=== PATIENT | female | born 1995 | race Caucasian/White ===

== ENCOUNTER 2017-01-09 20:07 | Emergency (ER) | payer OTHER ==
[2017-01-09 21:43] LABS: APPEARANCE,URINE CLOUDY; BILIRUBIN,URINE NEGATIVE (NEGATIVE); GLUCOSE, URINE NEGATIVE (NEGATIVE); KETONES,URINE NEGATIVE (NEGATIVE); LEUKOCYTE ESTERASE,URINE LARGE (NEGATIVE); NITRITE,URINE POSITIVE (NEGATIVE); PROTEIN,URINE NEGATIVE (NEGATIVE); URINE SPECIFIC GRAVITY 1.014; UROBILINOGEN,URINE NEGATIVE mg/dL (<2.0)
[2017-01-10] MEDS ORDERED: CEFTRIAXONE INJ 1000 MG VIAL IM ONE
[2017-01-10] MEDS ORDERED: LIDOCAINE 1% INJ-PF (10 MG/ML) 30 ML SDV INJ ONE
--- NOTE | 2017-01-10 00:16 | ER Document Report ---
HPI - HPI Pain Level: 4 Notes: Patient is a 21-year-old female who presents the ED complaining of burning with urination, frequency, urgency, cloudy urine times several days. Patient states that she usually does homeopathic remedies which helps resolve her symptoms from previous UTIs, but this time symptoms have been persistent. Patient denies any abdominal or flank pain. She still eating and drinking without any difficulties. She denies any vaginal odor/discharge/bleeding. Denies any drug allergies. No other significant past medical history aside from Tourette's. Denies any headache, fever, URI, sore throat, chest pain, palpitations, syncope , cough, shortness of breath, wheeze, dyspnea, abdominal pain, nausea/vomiting/ diarrhea, or rash. - ROS Notes: REVIEW OF SYSTEMS: CONSTITUTIONAL : Denies fever, chills, or sweats. Denies recent illness. EENT: Denies eye, ear, throat, or mouth pain or symptoms. Denies nasal or sinus congestion or discharge. Denies throat, tongue, or mouth swelling or difficulty swallowing. CARDIOVASCULAR: Denies chest pain. Denies palpitations or racing or irregular heart beat. Denies ankle edema. RESPIRATORY: Denies cough, cold, or chest congestion. Denies shortness of breath, difficulty breathing, or wheezing. GASTROINTESTINAL: Denies abdominal pain or distention. Denies nausea, vomiting , or diarrhea. Denies blood in vomitus, stools, or per rectum. Denies black, tarry stools. Denies constipation. GENITOURINARY: See HPI MUSCULOSKELETAL: Denies back or neck pain or stiffness. Denies joint pain or swelling. SKIN: Denies rash, lesions or sores. NEUROLOGICAL: Denies confusion or altered mental status. Denies passing out or loss of consciousness. Denies dizziness or lightheadedness. Denies headache. Denies weakness or paralysis or loss of use of either side. Denies problems with gait or speech. Denies sensory loss, numbness, or tingling. ALL OTHER SYSTEMS REVIEWED AND NEGATIVE. Dictation was performed using [employer] recognition software - DERM Skin Color: Normal Past Medical History - Social History Smoking Status: Never Smoker Frequency of alcohol use: None Drug Abuse: None Family History: Reviewed & Not Pertinent Patient has suicidal ideation: No Patient has homicidal ideation: No Renal/ Medical History: Denies: Hx Peritoneal Dialysis Surgical Hx: Negative - Immunizations Hx Diphtheria, Pertussis, Tetanus Vaccination: Yes Vertical Provider Document - CONSTITUTIONAL Agree With Documented VS: Yes Notes: PHYSICAL EXAMINATION: GENERAL: Well-appearing, well-nourished and in no acute distress. LUNGS: Breath sounds clear to auscultation bilaterally and equal. No wheezes rales or rhonchi. HEART: Regular rate and rhythm without murmurs, rubs, gallops. ABDOMEN: Soft, nontender, nondistended abdomen. No guarding, no rebound. No masses appreciated. Normal bowel sounds present. No CVA tenderness bilaterally. : deferred Extremities: No cyanosis, clubbing, or edema b/l. Peripheral pulses 2+. Capillary refill less than 3 seconds. NEUROLOGICAL: Normal speech, normal gait. Normal sensory, motor exams PSYCH: Normal mood, normal affect. SKIN: Warm, Dry, normal turgor, no rashes or lesions noted. - INFECTION CONTROL TRAVEL OUTSIDE OF THE [place] IN LAST 30 DAYS: No - RESPIRATORY O2 Sat by Pulse Oximetry: 100 Course - Re-evaluation Re-evalutation: 01/10/17 00:15 Patient is an afebrile, well-hydrated, 21-year-old female who presents to the ED with UTI, possible indication for early Aravind. Vitals are stable. PE otherwise unremarkable. See urinalysis results. Urine culture is pending. Rocephin 1 g given IM today. I will send her home with a prescription for Cipro to take twice daily for 1 week. Conservative measures for symptoms otherwise. Recheck with your PCM in 2-3 days. Consider consult with urologist for ongoing/worsening symptoms. Return to the ED with any worsening/concerning symptoms otherwise as reviewed discharge. Patient is in agreement. Low suspicion/risk for any emergent systemic condition or other acute abdomen/ pelvic at this time. - Vital Signs Vital signs: Temp Pulse Resp BP Pulse Ox 97.5 F 78 18 124/74 100 01/09/17 21:05 01/09/17 21:05 01/09/17 21:05 01/09/17 21:05 01/09/17 21:05 - Laboratory Laboratory results interpreted by me: 01/09/17 21:13 Urine Blood SMALL H Urine Nitrite POSITIVE H Ur Leukocyte Esterase LARGE H Discharge - Discharge Clinical Impression: UTI (urinary tract infection) Qualifiers: Urinary tract infection type: site unspecified Hematuria presence: without hematuria Qualified Code(s): N39.0 - Urinary tract infection, site not specified Condition: Stable Disposition: HOME, SELF-CARE Instructions: Urinary Tract Infection ([facility]), Ciprofloxacin ([facility]) Additional Instructions: Push fluids (i.e. water, cranberry juice) Proper hygenic technique Keep the skin clean Tylenol/ibuprofen as needed May use over the counter AZO for burning with urination Take medications as directed F/u with your PCM in 2-3 days for a recheck Consider consult with a Urologist for ongoing/worsening symptoms. Return to the ED with any development of fever, worsening pain, blood in the urine, flank pain, abdominal pain, n/v, CP, shortness of breath, or trouble breathing. Prescriptions: Ciprofloxacin HCl [Cipro 500 mg Tablet] 500 mg PO BID #14 tablet Referrals: [facility] [Provider Group] - Follow up as needed
[2017-01-10 00:46] VITALS: BP 111/69
== END 2017-01-10 00:36 | disposition home or self-care (01) ==
LOC: EDBD → ER 20:07
DX: N39.0 Urinary tract infection, site not specified (principal); R30.9 Painful micturition, unspecified; R35.0 Frequency of micturition; R39.15 Urgency of urination; F95.2 Tourette's disorder
CPT/HCPCS: 99283; 96372; 36415; 87086; 87088; 81001; 87186; J3490; J0696

== ENCOUNTER 2018-12-27 16:11 | Emergency (ER) | payer OTHER ==
--- NOTE | 2018-12-27 16:37 | ER Document Report ---
ED Medical Screen (RME) - General Chief Complaint: Dizziness Stated Complaint: DIZZINESS Time Seen by Provider: 12/27/18 16:27 TRAVEL OUTSIDE OF THE [place] IN LAST 30 DAYS: No - HPI Notes: 12/27/18 16:33 Patient is a 23-year-old female no significant past medical history who presents with an extensive list of complaints with well over 10 concerns. The past couple weeks patient has been having intermittent dizziness with some ringing in the ears bilaterally. Patient also felt anxious. She has had some palpitations. Patient does report losing some hair with tingling to her hands and feet bilaterally as well as been feeling cold and clammy. Most of these issues have been intermittent and chronic otherwise. She has other complaints that she has a list of she can mention to the main side provider, but we will start with basics at this time. Denies SOLOMON, fever, neck pain, URI, CP, SOB, Abd pain, v/d, dysuria, back pain, or rash. I have treated and performed a rapid initial assessment of this patient. A comprehensive ED assessment and evaluation of the patient, analysis of test results and completion of medical decision making process will be conducted by additional ED providers. o2 saturation 100%, not 91% on RA. PHYSICAL EXAMINATION: GENERAL: Well-appearing, well-nourished and in no acute distress. A&Ox4. Answers questions appropriately. LUNGS: Breath sounds clear to auscultation bilaterally and equal. No wheezes rales or rhonchi. HEART: Regular rate and rhythm without murmurs, rubs, gallops. Extremities: No cyanosis, clubbing, or edema b/l. NEUROLOGICAL: Normal speech, normal gait. Cranial nerves grossly intact. PSYCH: pt appears very anxious - Related Data Allergies/Adverse Reactions: No Known Allergies Allergy (Verified 12/27/18 16:12) Past Medical History Renal/ Medical History: Denies: Hx Peritoneal Dialysis - Immunizations Hx Diphtheria, Pertussis, Tetanus Vaccination: Yes Physical Exam - Vital signs Vitals: Temp Pulse Resp BP Pulse Ox 98.3 F 93 15 100/75 91 L 12/27/18 16:19 12/27/18 16:19 12/27/18 16:19 12/27/18 16:19 12/27/18 16:19 Course - Vital Signs Vital signs: Temp Pulse Resp BP Pulse Ox 98.3 F 93 15 100/75 91 L 12/27/18 16:19 12/27/18 16:19 12/27/18 16:19 12/27/18 16:19 12/27/18 16:19
[2018-12-27] MEDS ORDERED: MECLIZINE HCL 25 MG TABLET PO ONE (16:38)
[2018-12-27 17:09] LABS: ABSOLUTE EOSINOPHILS # (AUTO) 0.1 10^3/uL (0.0-0.6); ABSOLUTE LYMPHOCYTES (AUTO) 1.9 10^3/uL (0.5-4.7); ABSOLUTE MONOCYTES (AUTO) 0.6 10^3/uL (0.1-1.4); ABSOLUTE NEUT (AUTO) 2.8 10^3/uL (1.7-8.2); BASOPHILS % (AUTO) 0.6 % (0-2); EOSINOPHILS % (AUTO) 2.5 % (0-6); HEMATOCRIT 44.3 % (36.0-47.0); LYMPHOCYTES % (AUTO) 35.2 % (13-45); MEAN CORPUSCULAR HEMOGLOBIN 29.7 pg (27.0-33.4); MEAN CORPUSCULAR HGB CONC 33.8 g/dL (32.0-36.0); MEAN CORPUSCULAR VOLUME 88 fl (80-97); MONOCYTES % (AUTO) 10.7 % (3-13); PLATELET COUNT 253 10^3/uL (150-450); RED BLOOD COUNT 5.05 10^6/uL (3.72-5.28); RED CELL DISTRIBUTION WIDTH 13.1 % (11.5-14.0); TOTAL CELLS COUNTED % (AUTO) 100 %; WHITE BLOOD COUNT 5.5 10^3/uL (4.0-10.5)
[2018-12-27 17:15] LABS: APPEARANCE,URINE HAZY; BILIRUBIN,URINE MODERATE (NEGATIVE); GLUCOSE, URINE NEGATIVE (NEGATIVE); KETONES,URINE 100 mg/dL (NEGATIVE); LEUKOCYTE ESTERASE,URINE TRACE (NEGATIVE); NITRITE,URINE NEGATIVE (NEGATIVE); PROTEIN,URINE 30 mg/dL (NEGATIVE)
[2018-12-27 17:18] LABS: COLOR,URINE YELLOW; URINE SPECIFIC GRAVITY 1.028
[2018-12-27 17:28] LABS: ALBUMIN 5.2 g/dL (3.5-5.0); ALKALINE PHOSPHATASE 58 U/L (38-126); ANION GAP 13 (5-19); ASPARTATE AMINO TRANSFERASE 21 U/L (14-36); BILIRUBIN,DIRECT 0.1 mg/dL (0.0-0.4); BLOOD UREA NITROGEN 16 mg/dL (7-20); CALCIUM 10.2 mg/dL (8.4-10.2); CARBON DIOXIDE 28 mmol/L (22-30); CHLORIDE 100 mmol/L (98-107); GLUCOSE 83 mg/dL (75-110); POTASSIUM 4.2 mmol/L (3.6-5.0); TOTAL PROTEIN 8.6 g/dL (6.3-8.2)
[2018-12-27 17:45] LABS: FREE T3 3.82 pg/mL (2.77-5.27); FREE T4 (FREE THYROXINE) 1.31 ng/dL (0.78-2.19)
[2018-12-27] MEDS ORDERED: NITROFURANTOIN MONOHYD/M-CRYST 100 MG CAPSULE PO ONE (17:48)
--- NOTE | 2018-12-27 17:53 | ER Document Report ---
ED General - General Chief Complaint: Dizziness Stated Complaint: DIZZINESS Time Seen by Provider: 12/27/18 16:27 Primary Care Provider: SHABBIR GÓMEZ MD [Primary Care Provider] - Follow up as needed Mode of Arrival: Ambulatory Information source: Patient Notes: 23-year-old female presented to ED for complaint of a large varied complaints. She has about 10-12 complaints. She states she has been dizzy with ringing in her ears, numb and tingling and feelings, anxious, palpitations, losing some of her hair, cold and clammy feeling at times, headache at times, and just not feeling right for a long time. She states all of these have been going on for an extensive number of months to years. She states she does have a history of ITP, fractured nose, febrile seizures up to the age of 14, Tourette's, anxiety, depression, ADHD, bipolar, OCD, and possible borderline personality. She states she also has frequent UTIs but does not have a symptom of UTI it now. TRAVEL OUTSIDE OF THE [place] IN LAST 30 DAYS: No - HPI Onset: Other - Chronic Onset/Duration: Gradual, Intermittent Quality of pain: No pain Severity: None Pain Level: Denies Associated symptoms: Other - See HPI Exacerbated by: Movement Relieved by: Denies Similar symptoms previously: Yes Recently seen / treated by doctor: Yes - Related Data Allergies/Adverse Reactions: No Known Allergies Allergy (Verified 12/27/18 16:12) Past Medical History - General Information source: Patient - Social History Smoking Status: Current Every Day Smoker Cigarette use (# per day): Yes Chew tobacco use (# tins/day): No Smoking Education Provided: Yes - 4 minutes Frequency of alcohol use: Occasional Drug Abuse: Marijuana Lives with: Family Family History: Reviewed & Not Pertinent Patient has suicidal ideation: No Patient has homicidal ideation: No - Past Medical History Cardiac Medical History: Reports: Other - ITP Pulmonary Medical History: Reports: None EENT Medical History: Reports: None Neurological Medical History: Reports: Hx Seizures - Febrile seizures Endocrine Medical History: Reports: None Renal/ Medical History: Reports: Other - Frequent UTI Malignancy Medical History: Reports: None GI Medical History: Reports: None Musculoskeletal Medical History: Reports Hx Musculoskeletal Trauma Skin Medical History: Reports None Psychiatric Medical History: Reports: Hx Anxiety, Hx Attention Deficit Hyperactivity Disorder, Hx Bipolar Disorder, Hx Borderline Personality Disorder - Possible, Hx Depression, Hx Obsessive Compulsive Disorder, Other - Tourette's Traumatic Medical History: Reports: Hx Fractures - Nose Infectious Medical History: Reports: None Surgical Hx: Negative Past Surgical History: Reports: None - Immunizations Hx Diphtheria, Pertussis, Tetanus Vaccination: Yes Review of Systems - Review of Systems Constitutional: No symptoms reported EENT: No symptoms reported Cardiovascular: Palpitations, Dizziness, Lightheaded Respiratory: No symptoms reported Gastrointestinal: No symptoms reported Genitourinary: No symptoms reported Female Genitourinary: No symptoms reported Musculoskeletal: No symptoms reported Skin: No symptoms reported Hematologic/Lymphatic: No symptoms reported Neurological/Psychological: Numbness - Fingers and toes intermittently, Tingling - Fingers and toes intermittently -: Yes All other systems reviewed and negative Physical Exam - Vital signs Vitals: Temp Pulse Resp BP 98.3 F 93 15 100/75 12/27/18 16:19 12/27/18 16:19 12/27/18 16:19 12/27/18 16:19 Interpretation: Normal - General General appearance: Appears well, Alert - HEENT Head: Normocephalic, Atraumatic Eyes: Normal Pupils: PERRL - Respiratory Respiratory status: No respiratory distress Chest status: Nontender Breath sounds: Normal Chest palpation: Normal - Cardiovascular Rhythm: Regular Heart sounds: Normal auscultation Murmur: No - Abdominal Inspection: Normal Distension: No distension Bowel sounds: Normal Tenderness: Nontender Organomegaly: No organomegaly - Back Back: Normal, Nontender - Extremities General upper extremity: Normal inspection, Nontender, Normal color, Normal ROM, Normal temperature General lower extremity: Normal inspection, Nontender, Normal color, Normal ROM, Normal temperature, Normal weight bearing. No: Tunde's sign - Neurological Neuro grossly intact: Yes Cognition: Normal Orientation: AAOx4 [place] Coma Scale Eye Opening: Spontaneous [place] Coma Scale Verbal: Oriented Jet Coma Scale Motor: Obeys Commands Jet Coma Scale Total: 15 Speech: Normal Cranial nerves: Normal Cerebellar coordination: Normal Motor strength normal: LUE, RUE, LLE, RLE Additional motor exam normals: Equal bunch breaker Babinski reflex: Normal (flexor plantar) Sensory: Normal Biceps - Reflex grade: 2 = Normal Triceps - Reflex grade: 2 = Normal Brachioradialis - Reflex grade: 2 = Normal Knee - Reflex grade: 2 = Normal Ankle - Reflex grade: 2 = Normal - Psychological Associated symptoms: Normal affect, Normal mood - Skin Skin Temperature: Warm Skin Moisture: Dry Skin Color: Normal Course - Re-evaluation Re-evalutation: 12/28/18 00:20 Discussed all labs with patient and written report of labs given to patient. We will get a urine C&S. Patient was treated with nausea medicine and meclizine and discharged home. Patient states she was feeling good at the time of discharge. Patient verbalized understanding and agreement with treatment plan. - Vital Signs Vital signs: Temp Pulse Resp BP Pulse Ox 97.5 F 72 16 105/69 99 12/27/18 18:16 12/27/18 18:16 12/27/18 18:16 12/27/18 18:16 12/27/18 18:16 - Laboratory Result Diagrams: 12/27/18 16:52 12/27/18 16:52 Laboratory results interpreted by me: 12/27/18 12/27/18 16:52 16:52 Total Protein 8.6 H Albumin 5.2 H Urine Protein 30 H Urine Ketones 100 H Urine Bilirubin MODERATE H Urine Urobilinogen 2.0 H Ur Leukocyte Esterase TRACE H Urine Ascorbic Acid 20 H Discharge - Discharge Clinical Impression: Dizziness UTI (urinary tract infection) Qualifiers: Urinary tract infection type: acute cystitis Hematuria presence: without hematuria Qualified Code(s): N30.00 - Acute cystitis without hematuria Condition: Stable Disposition: HOME, SELF-CARE Additional Instructions: DIZZINESS: Under normal circumstances, your sense of balance is controlled by a number of signals that your brain receives from several locations: Eyes. No matter what your position, visual signals help you determine where your body is in space and how it's moving. Sensory nerves. These are in your skin, muscles and joints. Sensory nerves send messages to your brain about body movements and positions. Inner ear. The organ of balance in your inner ear is the vestibular labyrinth. It includes loop-shaped structures (semicircular canals) that contain fluid and fine, hair-like sensors that monitor the rotation of your head. Near the semicircular canals are the utricle and saccule, which contain tiny particles called otoconia ([id number]). These particles are attached to sensors that help detect gravity and [id number] motion. Good balance depends on at least two of these three sensory systems working well. For instance, closing your eyes while washing your hair in the shower d oesn't mean you'll lose your balance. Signals from your inner ear and sensory nerves help keep you upright. However, if your central nervous system can't process signals from all of these locations, if the messages are contradictory, or if the sensory systems aren't functioning properly, you may experience loss of balance. Dizziness may have a number of potential causes. These may include: Vertigo Vertigo - the false sense of motion or spinning - is the most common symptom of dizziness. Sitting up or moving around may make it worse. Sometimes vertigo is severe enough to cause nausea and vomiting. Vertigo usually results from a problem with the nerves and the structures of the balance mechanism in your inner ear (vestibular system), which sense movement and changes in your head position. Abnormal rhythmic eye movements (nystagmus) almost always accompany vertigo. Causes of vertigo may include: Benign paroxysmal positional vertigo (BPPV). BPPV involves intense, brief episodes of vertigo associated with a change in the position of your head, often when you turn over in bed or sit up in the morning. It occurs when normal calcium carbonate crystals (otoconia) break loose and fall into the wrong part of the canals in your inner ear. When these particles shift, they stimulate sensors in your ear, producing an episode of vertigo. Doctors don't know what causes BPPV, but it may be a natural result of aging. Trauma to your head also may lead to BPPV. Inflammation in the inner ear. Signs and symptoms of inflammation of the inner ear (acute vestibular neuronitis or labyrinthitis) include sudden, intense vertigo that may persist for several days, with nausea and vomiting. It can be incapacitating, requiring bed rest to minimize the signs and symptoms. Fortun ately, vestibular neuronitis generally subsides and clears up on its own. Recovery time may be shorter with vestibular rehabilitation exercises. Although the cause of this condition is unknown, it may be a viral infection. Meniere's disease. This disease involves the excessive buildup of fluid in your inner ear. It may affect adults at any age and is characterized by sudden episodes of vertigo lasting 30 minutes to an hour or longer. Other signs and symptoms include the feeling of fullness in your ear, buzzing or ringing in your ear (tinnitus), and fluctuating hearing loss. The cause of Meniere's disease is unknown. Vestibular migraine. People who experience a vestibular migraine are very sensitive to motion. Dizziness and vertigo caused by a vestibular migraine may be triggered by turning your head quickly, being in a crowded or confusing place, driving or riding in a vehicle, or even watching movement on TV. A vestibular migraine may cause feelings of imbalance or unsteadiness, hearing loss, "muffled" hearing, or ringing in your ears (tinnitus). For most people with a vestibular migraine, vertigo doesn't necessarily happen at the same time as the headache. Instead, typical migraine triggers may lead to vertigo without an actual migraine. Attacks of migrainous vertigo can last from a few minutes to several days. Acoustic neuroma. An acoustic neuroma (schwannoma) is a noncancerous (benign) growth on the acoustic nerve, which connects the inner ear to your brain. Signs and symptoms of an acoustic neuroma may include dizziness, loss of balance, hearing loss and tinnitus. Rapid changes in motion. Riding on roller coasters or in boats, cars or even airplanes may on occasion make you dizzy. Other causes. Rarely, vertigo can be a symptom of a more serious neurological problem such as a stroke, brain hemorrhage or multiple sclerosis. Feeling of faintness (presyncope) "Presyncope" is the medical term for feeling faint and lightheaded without losing consciousness. Sometimes nausea, pale skin and a sense of dizziness accompany a feeling of faintness. Causes of presyncope include: Drop in blood pressure (orthostatic hypotension). A dramatic drop in your systolic blood pressure - the higher number in your blood pressure reading - may result in lightheadedness or a feeling of faintness. It can occur after sitting up or standing too quickly. Inadequate output of blood from the heart. Conditions such as partially blocked arteries (atherosclerosis), disease of the heart muscle (cardiomyopathy), abnormal heart rhythm (arrhythmia) or a decrease in blood volume may cause inadequate blood flow from your heart. Loss of balance (disequilibrium) Disequilibrium is the loss of balance or the feeling of unsteadiness when you walk. Causes may include: Inner ear (vestibular) problems. Abnormalities with your inner ear can cause you to feel like you are floating, have a heavy head or are unsteady in the dark. Sensory disorders. Failing vision and nerve damage in your legs (peripheral neuropathy) are common in older adultsand may result in difficulty maintaining your balance. Joint and muscle problems. Muscle weakness and osteoarthritis - the type of arthritis that involves wear and tear of your joints - can contribute to loss of balance when it involves your weight-bearing joints. Medications. Loss of balance can be a side effect of certain medications, such as anti-seizure drugs, sedatives and tranquilizers. Lightheadedness and other kinds of dizziness Feeling lightheaded is the feeling of being "spaced out" or having the sensation of spinning inside your head. It can also give you the sensation that if your lightheadedness worsens, you might lose consciousness. Causes may include: Inner ear disorders. These abnormalities of your inner ear can lead to illusions of motion and make you feel like you're floating. Anxiety disorders. Certain anxiety disorders, such as panic attacks and a fear of leaving home or being in large, open spaces (agoraphobia), may cause l ightheadedness. Hyperventilation. Abnormally rapid breathing that often accompanies anxiety disorders may make you feel lightheaded. URINARY TRACT INFECTION: Your evaluation indicates that you have a urinary tract infection. This is due to germs growing in the bladder. This is a common problem. This infection usually responds quickly to antibiotics. Your antibiotic should be taken exactly as prescribed. Drink plenty of fluids -- three to four quarts a day. Occasionally, a bladder anesthetic will be prescribed to help stop the feeling of urgency until the antibiotic has a chance to clear the infection. This may cause your urine to be dark orange. Certain urine infections require a culture. If the doctor obtained a culture, the results will be back in two days. You should call to see if a change in treatment is needed. A repeat urinalysis after you finish treatment is often recommended. The physician will let you know if further testing is required. Call the doctor if you develop fever, chills, flank pain, inability to urinate, or blood in the urine. NITROFURANTOIN (MACRODANTIN, MACROBID): You have received a prescription for nitrofurantoin (Macrodantin). This antibiotic is used for urinary tract infections. Women who are or nursing should notify the physician before taking this medicine. If you have ever had a problem caused by this medication in the past, be sure the physician is aware of it. Common side effects of this medicine include nausea, vomiting, or decreased appetite. Notify your physician if these side effects become severe. Immediately stop this medicine and call the physician if you develop cough, shortness of breath, chest pain, weakness, jaundice (yellow color of the skin and whites of the eyes), or a skin rash. FOLLOW-UP CARE: If you have been referred to a physician for follow-up care, call the physicians office for an appointment as you were instructed or within the next two days. If you experience worsening or a significant change in your symptoms, notify the physician immediately or return to the Emergency Department at any time for re-evaluation. Prescriptions: Nitrofurantoin/Nitrofuran Mac [Macrobid 100 mg Capsule] 1 tab PO BID #10 capsule Referrals: SHABBIR GÓMEZ MD [Primary Care Provider] - Follow up as needed
[2018-12-27 17:59] LABS: THYROID STIMULATING HORMONE 2.18 uIU/mL (0.47-4.68)
[2018-12-27 18:19] VITALS: BP 105/69
--- NOTE | 2018-12-27 19:25 | EKG REPORT ---
SEVERITY:- NORMAL ECG - SINUS RHYTHM : Confirmed by: Norah Ervin MD 27-Dec-2018 19:25:04
== END 2018-12-27 18:22 | disposition home or self-care (01) ==
LOC: ER 16:11
DX: N30.00 Acute cystitis without hematuria (principal); R42 Dizziness and giddiness; H93.13 Tinnitus, bilateral; R20.0 Anesthesia of skin; F41.9 Anxiety disorder, unspecified; R00.2 Palpitations; R51 Headache; L65.9 Nonscarring hair loss, unspecified; F17.210 Nicotine dependence, cigarettes, uncomplicated
CPT/HCPCS: 93005; 36415; 87086; 84439; 82962; 84443; 85025; 81025; 80053; 81001; 84481; 93010; J8499

== ENCOUNTER → 2019-01-10 | Outpatient (CLI) | payer OTHER ==
[2019-01-10 14:32] LABS: BACTERIA (WET MOUNT) 3+ BACTERIA SEEN; EPITHELIALS (WET MOUNT) 3+ EPITHELIALS SEEN; RBCS (WET MOUNT) 2+ RBCS SEEN; T.VAGINALIS (WET MOUNT) NO TRICHOMONAS SEEN; WBCS (WET MOUNT) 3+ WBCS SEEN; YEAST (WET MOUNT) BUDDING YEAST SEEN
[2019-01-10 14:38] LABS: APPEARANCE,URINE CLOUDY; BILIRUBIN,URINE NEGATIVE (NEGATIVE); COLOR,URINE AMBER; GLUCOSE, URINE NEGATIVE (NEGATIVE); KETONES,URINE TRACE mg/dL (NEGATIVE); LEUKOCYTE ESTERASE,URINE LARGE (NEGATIVE); NITRITE,URINE NEGATIVE (NEGATIVE); PROTEIN,URINE 100 mg/dL (NEGATIVE); URINE SPECIFIC GRAVITY 1.026
[2019-01-10 15:59] LABS: CHLAM PCR NOT DETECTED (NOT DETECT)
== END ==
LOC: LAB 14:20
PROVIDERS: ATTEND Nurse Practitioner Family
DX: R30.0 Dysuria (principal)
CPT/HCPCS: 81001; 87086; 87088; 87210; 87491; 87591